=== PATIENT | female | born 1965 | race Caucasian/White ===

== ENCOUNTER → 2017-07-04 | Outpatient (CLI) | payer BC | LOC: COL.RAD 11:17 | DX: Z01.89 Encounter for other specified special examinations (principal) | CPT/HCPCS: A9516 ==

== ENCOUNTER 2017-08-26 14:15 | Outpatient (RCR) | payer BC | END 2017-11-24 | disposition home or self-care (01) | LOC: WSST | DX: R26.89 Other abnormalities of gait and mobility (principal); R47.9 Unspecified speech disturbances; R53.82 Chronic fatigue, unspecified; G65.0 Sequelae of Guillain-Barre syndrome ==

== ENCOUNTER → 2017-08-26 | Outpatient (CLI) | payer BC | LOC: COL.RAD 08-01 07:30 | DX: R41.3 Other amnesia (principal); R47.9 Unspecified speech disturbances; R26.89 Other abnormalities of gait and mobility ==

== ENCOUNTER 2017-09-23 11:15 | Outpatient (RCR) | payer BC | END 2017-10-17 08:47 | disposition home or self-care (01) | LOC: WSOT 11:15 | DX: S62.637D Displaced fracture of distal phalanx of left little finger, subsequent encounter for fracture with routine healing (principal); W19.XXXD Unspecified fall, subsequent encounter ==

== ENCOUNTER 2018-05-09 12:12 | Outpatient (CLI) | payer BC ==
[~2018-05-09] VITALS: Ht 162.6 cm; Wt 91.1 kg
[~2018-05-09 12:12] MED LIST: ATARAX 25MG25 MG/TAB PO; BIOTIN5000 MCG PO; CALCIUM 600MG+D1 TAB PO; DESYREL 50MG50 MG PO; FLEXERIL 1010 MG/TAB PO; GELATIN650 M2 PO; IRON 27 MG PO; LEXAPRO 10MG10 MG PO; MOBIC15 MG PO; MULTI VITAMINS1 TAB PO; NEURONTIN600 MG/TAB; NEURONTIN600 MG/TAB PO; REQUIP 1MG T1 MG/TAB PO; VITAMIN C500 MG PO
[2018-05-09 13:32] VITALS: BP 115/89; PULSE 78
[2018-05-09 14:45] VITALS: BP 115/71; PULSE 69
[2018-05-09 15:11] LABS: GLUCOSE,CSF 54 mg/dL (40-70); TOTAL PROTEIN,CSF 39 mg/dL (15-45)
[2018-05-09 15:29] LABS: CSF APPEARANCE CLEAR; CSF COLOR COLORLESS; CSF RBC 0 /mm3 (0-0)
[2018-05-09 15:43] LABS: CSF MONONUCLEAR 0 % (70-100); CSF POLYMORPHONUCLEAR 0 % (0-6)
[2018-05-09 15:48] VITALS: BP 115/71; PULSE 56
== END 2018-05-09 16:25 | disposition home or self-care (01) ==
LOC: COL.RAD 12:12
PROVIDERS: Psychiatry & Neurology Neurology
DX: G61.81 Chronic inflammatory demyelinating polyneuritis (principal); Z96.5 Presence of tooth-root and mandibular implants; Z86.69 Personal history of other diseases of the nervous system and sense organs
CPT/HCPCS: A9585

== ENCOUNTER 2018-05-17 09:01 | Emergency (ER) | payer BC ==
[~2018-05-17] VITALS: Ht 165.1 cm; Wt 90.9 kg
[2018-05-17 09:04] VITALS: BP 113/55; TEMP 98.4
[2018-05-17] MEDS ORDERED: MOBIC 7.5MG7.5 MG PO (11:02)
[2018-05-17 11:20] VITALS: PULSE 78
== END 2018-05-17 11:27 | disposition home or self-care (01) ==
LOC: COL.ER 09:01
DX: S09.90XA Unspecified injury of head, initial encounter (principal); S01.111A Laceration without foreign body of right eyelid and periocular area, initial encounter; S63.501A Unspecified sprain of right wrist, initial encounter; W01.0XXA Fall on same level from slipping, tripping and stumbling without subsequent striking against object, initial encounter